=== PATIENT | female | born 1995 | race Two or more races ===

== ENCOUNTER 2023-04-20 16:21 | Emergency (ER) | payer OTHER ==
[~2023-04-20] VITALS: Ht 170.2 cm; Wt 64.0 kg
== END 2023-04-20 19:58 | disposition home or self-care (01) ==
LOC: ER 16:22
DX: S52.121A Displaced fracture of head of right radius, initial encounter for closed fracture (principal); W19.XXXA Unspecified fall, initial encounter; Y93.89 Activity, other specified; Y92.89 Other specified places as the place of occurrence of the external cause; Y99.8 Other external cause status

== ENCOUNTER 2023-05-04 08:04 | Outpatient (CLI) | payer OTHER | END 2023-05-04 08:13 | disposition home or self-care (01) | LOC: RAD 08:04 | PROVIDERS: ATTEND Orthopaedic Surgery | DX: M25.531 Pain in right wrist (principal); S52.124A Nondisplaced fracture of head of right radius, initial encounter for closed fracture ==

== ENCOUNTER 2023-05-05 13:10 | Outpatient (CLI) | payer OTHER | END 2023-05-05 13:51 | disposition home or self-care (01) | LOC: RAD 13:10 | PROVIDERS: ATTEND Orthopaedic Surgery | DX: M25.551 Pain in right hip (principal); M25.532 Pain in left wrist ==

== ENCOUNTER → 2024-02-05 14:43 | Outpatient (CLI) | payer OTHER | END | disposition home or self-care (01) | LOC: PRENATAL 14:43 | PROVIDERS: ATTEND Obstetrics & Gynecology Maternal & Fetal Medicine | DX: O36.80X0 Pregnancy with inconclusive fetal viability, not applicable or unspecified (principal); Z36.82 Encounter for antenatal screening for nuchal translucency; Z36.9 Encounter for antenatal screening, unspecified; Z14.8 Genetic carrier of other disease; Z3A.11 11 weeks gestation of pregnancy ==

== ENCOUNTER → 2024-03-26 08:08 | Outpatient (CLI) | payer OTHER | END | disposition home or self-care (01) | LOC: PRENATAL 08:08 | PROVIDERS: ATTEND Obstetrics & Gynecology Maternal & Fetal Medicine | DX: O44.00 Complete placenta previa NOS or without hemorrhage, unspecified trimester (principal); Z3A.19 19 weeks gestation of pregnancy ==

== ENCOUNTER 2024-06-26 09:22 | Outpatient (CLI) | payer OTHER | END 2024-06-26 09:23 | disposition home or self-care (01) | LOC: PRENATAL 09:22 | PROVIDERS: ATTEND Obstetrics & Gynecology Maternal & Fetal Medicine | DX: O26.849 Uterine size-date discrepancy, unspecified trimester (principal); O36.8199 Decreased fetal movements, unspecified trimester, other fetus; O43.90 Unspecified placental disorder, unspecified trimester; Z3A.33 33 weeks gestation of pregnancy ==